=== PATIENT | male | born 1975 | race Caucasian/White ===

== ENCOUNTER 2019-04-20 22:17 | Emergency (ER) | payer SELFPAY ==
--- NOTE | 2019-04-20 22:39 | EDPHYS ---
Physician Documentation [facility] Name: Anmol Raymundo Age: 43 yrs Sex: Male : 1975 Arrival Date: 04/20/2019 Time: 22:21 Bed 6 Private MD: ED Physician Matthew Carney HPI: 04/20 22:33 This 43 yrs old Male presents to ER via Ambulatory with complaints of Knee nh Pain. 22:33 Onset: The symptoms/episode began/occurred acutely, this morning. The patient has not nh experienced similar symptoms in the past. The patient has not recently seen a physician. Patient states that he has had mrsa before and he thinks that is what this is. Reports pain and knee swelling. small red area visible this morning. Patient states that when he has mrsa it gets really bad, so he wants to take care of it quickly. Historical: - Allergies: 22:30 Bactrim; ak1 - Home Meds: 22:30 Zoloft Oral [Active]; risperidone oral oral [Active]; Adderall XR Oral [Active]; ak1 Hydroxyzine Oral [Active]; - PMHx: 22:30 GERD; Hernia; MRSA TO WOUND; ak1 - PSHx: 22:30 Knee surgery; ak1 - Immunization history:: Adult Immunizations unknown. - Social history:: Smoking status: Patient/guardian denies using tobacco. - Ebola Screening: : No symptoms or risks identified at this time. ROS: 22:33 Constitutional: Negative for fever, chills, and weight loss, Eyes: Negative for injury, nh pain, redness, and discharge, ENT: Negative for injury, pain, and discharge, Neck: Negative for injury, pain, and swelling, Cardiovascular: Negative for chest pain, palpitations, and edema, Respiratory: Negative for shortness of breath, cough, wheezing, and pleuritic chest pain, Abdomen/GI: Negative for abdominal pain, nausea, vomiting, diarrhea, and constipation, Back: Negative for injury and pain, : Negative for injury, bleeding, discharge, and swelling, Skin: Negative for injury, rash, and discoloration, Neuro: Negative for headache, weakness, numbness, tingling, and seizure, Psych: Negative for depression, anxiety, suicide ideation, homicidal ideation, and hallucinations, Allergy/Immunology: Negative for hives, rash, and allergies, Endocrine: Negative for neck swelling, polydipsia, polyuria, polyphagia, and marked weight changes, Hematologic/Lymphatic: Negative for swollen nodes, abnormal bleeding, and unusual bruising. 22:33 MS/extremity: Positive for pain, of the right knee. Exam: 22:33 Constitutional: This is a well developed, well nourished patient who is awake, alert, nh and in no acute distress. Head/Face: Normocephalic, atraumatic. Eyes: Pupils equal round and reactive to light, extra-ocular motions intact. Lids and lashes normal. Conjunctiva and sclera are non-icteric and not injected. Cornea within normal limits. Periorbital areas with no swelling, redness, or edema. ENT: Nares patent. No nasal discharge, no septal abnormalities noted. Tympanic membranes are normal and external auditory canals are clear. Oropharynx with no redness, swelling, or masses, exudates, or evidence of obstruction, uvula midline. Mucous membranes moist. Neck: Trachea midline, no thyromegaly or masses palpated, and no cervical lymphadenopathy. Supple, full range of motion without nuchal rigidity, or vertebral point tenderness. No Meningismus. Chest/axilla: Normal chest wall appearance and motion. Nontender with no deformity. No lesions are appreciated. Cardiovascular: Regular rate and rhythm with a normal S1 and S2. No gallops, murmurs, or rubs. Normal PMI, no JVD. No pulse deficits. Respiratory: Lungs have equal breath sounds bilaterally, clear to auscultation and percussion. No rales, rhonchi or wheezes noted. No increased work of breathing, no retractions or nasal flaring. Abdomen/GI: Soft, non-tender, with normal bowel sounds. No distension or tympany. No guarding or rebound. No evidence of tenderness throughout. Back: No spinal tenderness. No costovertebral tenderness. Full range of motion. 22:33 Musculoskeletal/extremity: Extremities: grossly normal except: noted in the right knee: pain, swelling, ROM: limited passive range of motion due to pain, in the right knee, Circulation is intact in all extremities. Sensation intact. 22:33 Skin: lesion(s), noted, and can be described as erythematous, less than 1cm, located on nh the right knee. Vital Signs: 22:28 BP 140 / 86; Pulse 92; Resp 18; Temp 98.8; Pulse Ox 97% on R/A; Weight 92.99 kg (R); ak1 Height 5 ft. 9 in. (175.26 cm) (R); Pain 8/10; 22:47 BP 127 / 75; Pulse 87; Resp 18; Temp 98.8; Pulse Ox 97% on R/A; ak1 22:28 Body Mass Index 30.27 (92.99 kg, 175.26 cm) ak1 MDM: 22:22 Patient medically screened. nh 22:33 Data reviewed: vital signs, nurses notes, I have discussed the patient's il presentation/case with the attending Emergency Department Physician; and as a result, I will discharge patient. Counseling: I had a detailed discussion with the patient and/or guardian regarding: the historical points, exam findings, and any diagnostic results supporting the discharge/admit diagnosis, the need for outpatient follow up, to return to the emergency department if symptoms worsen or persist or if there are any questions or concerns that arise at home. Administered Medications: No medications were administered Disposition: 04/20/19 22:38 Discharged to Home. Impression: Pain in right knee, Cellulitis of right lower limb. - Condition is Stable. - Discharge Instructions: Cellulitis, Adult, Knee Pain. - Prescriptions for Clindamycin HCl 300 mg Oral Capsule - take 1 capsule by ORAL route every 6 hours for 10 days; 40 capsule. Tramadol 50 mg Oral Tablet - take 1 tablet by ORAL route every 8 hours as needed; 12 tablet. - Medication Reconciliation Form, Thank You Letter, Antibiotic Education, Prescription Opioid Use form. - Follow up: Private Physician; When: 2 - 3 days; Reason: Recheck today's complaints. - Problem is new. - Symptoms are unchanged. Signatures: Concepcion Milton, LENS DOTTER LENS DOTTER il Roseline Doherty, RN RN ak1 Corrections: (The following items were deleted from the chart) 22:48 22:38 04/20/2019 22:38 Discharged to Home. Impression: Pain in right knee; Cellulitis ak1 of right lower limb. Condition is Stable. Forms are Medication Reconciliation Form, Thank You Letter, Antibiotic Education, Prescription Opioid Use. Follow up: Private Physician; When: 2 - 3 days; Reason: Recheck today's complaints. Problem is new. Symptoms are unchanged. nh
--- NOTE | 2019-04-20 22:39 | ER ---
Nurse's Notes [facility] Name: Anmol Raymundo Age: 43 yrs Sex: Male : 1975 Arrival Date: 04/20/2019 Time: 22:21 Bed 6 Private MD: Diagnosis: Pain in right knee;Cellulitis of right lower limb Presentation: 04/20 22:31 Presenting complaint: Patient states: right knee pain with swelling since this morning. ak1 Transition of care: patient was not received from another setting of care. Onset of symptoms was April 20, 2019. Risk Assessment: Do you want to hurt yourself or someone else? Patient reports no desire to harm self or others. Initial Sepsis Screen: Does the patient meet any 2 criteria? No. Patient's initial sepsis screen is negative. Does the patient have a suspected source of infection? No. Patient's initial sepsis screen is negative. Care prior to arrival: None. 22:31 Acuity: SALMA 4 ak1 22:31 Method Of Arrival: Ambulatory ak1 Triage Assessment: 22:30 General: Appears in no apparent distress. Behavior is calm, cooperative. Pain: ak1 Complains of pain in right knee. EENT: No signs and/or symptoms were reported regarding the EENT system. Neuro: No deficits noted. Cardiovascular: No deficits noted. Respiratory: Airway is patent Respiratory effort is even, unlabored. GI: No signs and/or symptoms were reported involving the gastrointestinal system. : No signs and/or symptoms were reported regarding the genitourinary system. Derm: No signs and/or symptoms reported regarding the dermatologic system. Musculoskeletal: Range of motion: limited in right knee pt c/o increased pain with bending right knee since today. Historical: - Allergies: 22:30 Bactrim; ak1 - Home Meds: 22:30 Zoloft Oral [Active]; risperidone oral oral [Active]; Adderall XR Oral [Active]; ak1 Hydroxyzine Oral [Active]; - PMHx: 22:30 GERD; Hernia; MRSA TO WOUND; ak1 - PSHx: 22:30 Knee surgery; ak1 - Immunization history:: Adult Immunizations unknown. - Social history:: Smoking status: Patient/guardian denies using tobacco. - Ebola Screening: : No symptoms or risks identified at this time. Screenin:32 Abuse screen: Denies threats or abuse. Denies injuries from another. Nutritional ak1 screening: No deficits noted. Tuberculosis screening: No symptoms or risk factors identified. Fall Risk None identified. Assessment: 22:46 Reassessment: Patient appears in no apparent distress at this time. No changes from ak1 previously documented assessment. lizy bandage applied to right knee for comfort. Vital Signs: 22:28 BP 140 / 86; Pulse 92; Resp 18; Temp 98.8; Pulse Ox 97% on R/A; Weight 92.99 kg (R); ak1 Height 5 ft. 9 in. (175.26 cm) (R); Pain 8/10; 22:47 BP 127 / 75; Pulse 87; Resp 18; Temp 98.8; Pulse Ox 97% on R/A; ak1 22:28 Body Mass Index 30.27 (92.99 kg, 175.26 cm) ak1 ED Course: 22:21 Patient arrived in ED. mr 22:22 Concepcion Milton FNP [facility]. de 22:22 Matthew Carney MD is Attending Physician. de 22:27 Roseline Doherty, INOCENCIA is Primary Nurse. ak1 22:28 Arm band placed on Patient placed in an exam room, on a stretcher, on pulse oximetry, ak1 Patient notified of wait time. 22:32 Triage completed. ak1 22:32 Patient has correct armband on for positive identification. Bed in low position. Call ak1 light in reach. Side rails up X 1. Adult w/ patient. Pulse ox on. NIBP on. 22:32 Patient did not have IV access during this emergency room visit. ak1 22:32 No provider procedures requiring assistance completed. ak1 Administered Medications: No medications were administered Outcome: 22:38 Discharge ordered by . nh 22:39 Discharged to home ambulatory, with family. ak1 22:39 Condition: good 22:39 Discharge instructions given to patient, family, Instructed on discharge instructions, follow up and referral plans. no drinking with medication, no driving heavy equipment, medication usage, Demonstrated understanding of instructions, follow-up care, medications, Prescriptions given X 2. 22:48 Patient left the ED. ak1 Signatures: Concepcion Milton FNP [employer] MANAGERMarilyn DesiraMaria Del Rosario mr Roseline Doherty, RN RN ak1
[2019-04-21 06:00] VITALS: TEMP 98.8; O2SAT 97
[2019-04-21 06:01] VITALS: BP 127/75
== END 2019-04-20 22:48 | disposition home or self-care (01) ==
LOC: ER 22:17
DX: M25.561 Pain in right knee (principal); L03.115 Cellulitis of right lower limb
CPT/HCPCS: 99283